=== PATIENT | female | born 1970 | race Caucasian/White ===

== ENCOUNTER → 2019-10-20 | Outpatient (CLI) | payer OTHER ==
[~2019-10-20] VITALS: Ht 172.7 cm; Wt 95.3 kg
[~2019-10-20] MED LIST: BRINTELLIX10 MG PO
--- NOTE | 2019-10-21 16:07 | PATH ---
[facility] [address] [place] [address] PATHOLOGY RPT PROCEDURE Name: HARDIKILENE E Room #: REG [facility] Terry.#: [id number] Admission: 10/20/19 Date of : 74 Discharge: Report #: [id number] Path Case #: [id number] [facility] Accession Number: [id number] . 01 Material submitted: . colon - POLYP AT TRANSVERSE COLON. Modifiers: transverse . 01 Clinical history: . Pre-OP DX: Positive occult stool Post-OP DX: Colon polyp . 02 Diagnosis: Polyp, at transverse colon, endoscopic biopsy: - Lymphoid aggregate and hyperplastic changes. - Negative for dysplasia. . (IUV:mml; 10/21/2019) QLM 10/21/2019 1257 Local . 02 Electronically signed: . Es Kennedy MD, Pathologist NPI- [id number] . 01 Gross description: . Received in formalin labeled "Green, Ilene, polyp at transverse colon," is a single segment of us soft tissue measuring 0.5 cm in maximum dimension. The specimen is entirely submitted in cassette A1. (TSD; 10/20/2019) TOB/TOB 10/20/2019 1752 Local . 02 Pathologist provided ICD-10: R19.5 . 02 CPT . 040437 Specimen Comment: A courtesy copy of this report has been sent to [phone] Specimen Comment: Report sent to Performed at: [address], [place] [id number] MD Mekhi Avery MD Phone: [phone] Performed at: [address] [id number] MD Es Kennedy MD Phone: [phone]
== END | disposition home or self-care (01) ==
LOC: GI 08:59
DX: R19.5 Other fecal abnormalities (principal); K63.5 Polyp of colon; K64.8 Other hemorrhoids; E11.9 Type 2 diabetes mellitus without complications; F32.9 Major depressive disorder, single episode, unspecified; Z98.890 Other specified postprocedural states; Z79.899 Other long term (current) drug therapy
CPT/HCPCS: 62110; 62900